=== PATIENT | male | born 1985 | race Two or more races ===

== ENCOUNTER 2017-10-29 17:44 | Emergency (ER) | payer SELFPAY ==
[~2017-10-29] VITALS: Ht 170.2 cm; Wt 79.4 kg
[2017-10-29 18:30] VITALS: BP 123/83
== END 2017-10-29 21:17 | disposition home or self-care (01) ==
LOC: ER 17:49
DX: S61.412A Laceration without foreign body of left hand, initial encounter (principal); W26.9XXA Contact with unspecified sharp object(s), initial encounter; Y93.89 Activity, other specified; Y99.8 Other external cause status; Y92.89 Other specified places as the place of occurrence of the external cause
CPT/HCPCS: 12002